=== PATIENT | female | born 1990 | race Caucasian/White ===

== ENCOUNTER 2020-05-03 14:05 | Emergency (ER) | payer BC, MEDICAID ==
[~2020-05-03] VITALS: Ht 170.2 cm; Wt 59.0 kg
--- NOTE | 2020-05-03 14:08 | NUR ---
KYEONNA WRIGHT ALS TO ER BED 02
--- NOTE | 2020-05-03 14:12 | NUR ---
PT BIBA FOR OVERDOSE OF HEROIN AND METH ABOUT COUPLE HOURS AGO PER EMS. PT IS TACHYCADIAC AND SCREAMING/YELLING/CRYING UPON ARRIVAL. OTHERWISE, NO COUGH, FEVER, SOB/RESPIRATORY DISTRESS, NAUSEA, VOMITING, OR URINARY/FECAL INCONTINENCE NOTICED. BP IS NOT OBTAINABLE AT THIS TIME DUE TO THAT PT IS NOT CORPERATIVE.
--- NOTE | 2020-05-03 14:14 | NUR ---
ASSISTED PT TO AMBULATE TO THE BATHROOM WITH STEADY GAIT.
--- NOTE | 2020-05-03 14:15 | NUR ---
Note undone in EDM - 05/03/20 at 1431 by MED PT BIBA FOR OVERDOSE OF HEROIN AND METH ABOUT COUPLE HOURS AGO PER EMS. PT IS TACHYCADIAC AND SCREAMING/YELLING/CRYING UPON ARRIVAL. OTHERWISE, NO COUGH, FEVER, SOB/RESPIRATORY DISTRESS, NAUSEA, VOMITING, OR URINARY/FECAL INCONTINENCE NOTICED. BP IS NOT OBTAINABLE AT THIS TIME DUE TO THAT PT IS NOT CORPERATIVE.
--- NOTE | 2020-05-03 14:15 | NUR ---
PATIENT SLAMMING BATHROOM DOOR AND SCREAMING AT SECURITY AND STAFF
--- NOTE | 2020-05-03 14:23 | NUR ---
PATIENT LEFT WITHOUT BEING SEEN BY DR. COTA. NO FURTHER CARE PROVIDED FOR PATIENT.
== END 2020-05-03 14:23 | disposition left against medical advice (07) ==
LOC: MED 14:05
DX: Z53.21 Procedure and treatment not carried out due to patient leaving prior to being seen by health care provider (principal)

== ENCOUNTER 2021-05-15 08:12 | Emergency (ER) | payer BC, MEDICAID ==
[~2021-05-15] VITALS: Ht 167.6 cm; Wt 49.9 kg
[2021-05-15 08:15] VITALS: BP 110/69
== END 2021-05-15 08:59 ==
LOC: MED 08:12
DX: F41.9 Anxiety disorder, unspecified (principal); F11.10 Opioid abuse, uncomplicated; F17.200 Nicotine dependence, unspecified, uncomplicated
CPT/HCPCS: 99283